=== PATIENT | female | born 1975 | race Caucasian/White ===

== ENCOUNTER 2017-08-03 12:03 | Emergency (ER) | payer BC ==
[2017-08-03 12:21] VITALS: TEMP 98.2
[2017-08-03] MEDS ORDERED: SODIUM CHLORIDE 0.9% 1,000 ML IV STA (13:13)
[2017-08-03] MEDS ORDERED: MECLIZINE 12.5 MG TAB PO STA (13:14)
[2017-08-03] MEDS ORDERED: DIAZEPAM 5 MG/ML 2 ML INJ IVP STA (13:14)
--- NOTE | 2017-08-03 13:26 | ED ---
Dizziness HPI - General Chief Complaint: Dizziness Stated Complaint: Dizziness/ sent from [facility] Time Seen by Provider: 08/03/17 13:04 Source: patient Mode of arrival: ambulatory Limitations: no limitations - History of Present Illness Initial Comments: Pt presents with "room spinning...it just won't stop spinning when I move". Dizziness x 4days, worse with movement. Pt states she has been ill for past 11 days, think she had flu but was never tested. +sinus congestion, +L ear pain, + nonproductive cough, +dec appetite, +darker urine than normal, +fevers, +Chills , +fatigue. Denies SAMANIEGO, CP, Palpitations, vomiting. Pt states no PMH, takes daily vitamin, no other meds. States her symptoms resolved except she has been experiencing dizziness and fatigue for the past 4 days. Denies focal weakness, numbness, vision changes, confusion, speech problems, H/o thyroid disease. MD Complaint: dizziness - Related Data Previous Rx's Medication Instructions Recorded Meclizine [Antivert] 25 mg PO TID PRN #10 tab 08/03/17 Allergies Allergy/AdvReac Type Severity Reaction Status Date / Time No Known Allergies Allergy Verified 08/03/17 13:05 Review of Systems ROS Statement: Those systems with pertinent positive or pertinent negative responses have been documented in the HPI. ROS Other: All systems not noted in ROS Statement are negative. Constitutional: Reports: fever (resolved), chills (resolved), weakness ( generalized) Eyes: Denies: eye pain, vision change ENT: Reports: ear pain (resolved), congestion (resolved). Denies: throat pain, hearing loss Respiratory: Reports: cough (mild, nonproductive). Denies: dyspnea, wheezes, hemoptysis, stridor Cardiovascular: Denies: chest pain, palpitations, dyspnea on exertion, edema, syncope Endocrine: Reports: fatigue Gastrointestinal: Reports: nausea. Denies: abdominal pain, vomiting, diarrhea, constipation Genitourinary: Reports: other (darker urine) Musculoskeletal: Reports: myalgia (resolved). Denies: back pain, joint swelling Skin: Denies: rash, change in color Neurological: Reports: vertigo. Denies: headache, weakness, numbness, paresthesias, confusion Past Medical History Past Medical History: No Reported History History of Any Multi-Drug Resistant Organisms: None Reported Past Surgical History: No Surgical Hx Reported Past Psychological History: No Psychological Hx Reported Smoking Status: Never smoker Past Alcohol Use History: None Reported Past Drug Use History: None Reported General Exam - General Exam Comments Initial Comments: Sitting up in bed. Appears mildly fatigued. Conversing normally calm, pleasant , smiling. Nontoxic appearing. Limitations: no limitations General appearance: alert, in no apparent distress Head exam: Present: atraumatic, normocephalic Eye exam: Present: normal appearance, PERRL, EOMI. Absent: scleral icterus, conjunctival injection, periorbital swelling, periorbital tenderness ENT exam: Present: normal exam, normal oropharynx, mucous membranes moist, TM's normal bilaterally, normal external ear exam (Ear canals and tympanic membranes appear clear bilaterally.) Neck exam: Present: normal inspection, full ROM. Absent: tenderness, meningismus, lymphadenopathy Respiratory exam: Present: normal lung sounds bilaterally. Absent: respiratory distress, wheezes, rales, rhonchi, stridor, accessory muscle use, decreased breath sounds, prolonged expiratory Cardiovascular Exam: Present: regular rate, normal rhythm. Absent: systolic murmur, diastolic murmur GI/Abdominal exam: Present: soft. Absent: distended, tenderness, guarding, rebound Extremities exam: Present: normal inspection. Absent: joint swelling Neurological exam: Present: alert, oriented X3, CN II-XII intact, other (No focal neuro deficits on exam. Movements coordinated. Speech clear. Muscle strength 5 out of 5 in all extremity. Sensation intact motionless. Pupils equal and reactive bilaterally. Eye movements intact bilaterally.). Absent: motor sensory deficit Psychiatric exam: Present: normal affect, normal mood Skin exam: Present: warm, dry, intact, normal color. Absent: rash, cyanosis, diaphoretic, erythema Course Vital Signs 08/03/17 12:18 Temperature 98.2 F Pulse Rate 69 Respiratory 18 Rate Blood Pressure 113/67 O2 Sat by Pulse 100 Oximetry Medical Decision Making - Medical Decision Making Patient experiencing URI, flulike symptoms starting 11 days ago, states they have since resolved, however she still feels fatigued, nauseated, dizzy for the past 4 days. Patient complaining of left ear pain however no abnormalities appreciated on examination of the left ear. Patient may be experiencing BPPV vs labrinthitis vs dehydration 2/2 dec oral intake. EKG from urgent care showed normal sinus rhythm, no ST or T wave changes, heart rate 59. Blood pressure from urgent care in the 90 systolic, orthostatic show no change in blood pressure, heart rate did change from 59-70 when going from lying to standing. Patient given 1 L fluids in ER. Patient influenza B-positive. No other significant lab abnormalities. Chest x- ray negative. The patient and updated with all results. Patient feels comfortable being discharged home. Supportive care and hydration for the flu discussed. We 'll give prescription Antivert for dizziness and nausea. She agrees to follow primary care physician one to 2 days for reevaluation. Return to ER if new or worsening symptoms. Patient and understand and agree, are very happy with her care. - Lab Data Result diagrams: 08/03/17 14:00 08/03/17 14:00 Lab Results 08/03/17 08/03/17 08/03/17 Range/Units 14:00 14:00 14:00 WBC 5.6 (3.8-10.6) k/uL RBC 5.27 (3.80-5.40) m/uL Hgb 11.8 (11.4-16.0) gm/dL Hct 38.5 (34.0-46.0) % MCV 73.0 L (80.0-100.0) fL MCH 22.3 L (25.0-35.0) pg MCHC 30.6 L (31.0-37.0) g/dL RDW 15.2 (11.5-15.5) % Plt Count 312 (150-450) k/uL Neutrophils % 61 % Lymphocytes % 33 % Monocytes % 4 % Eosinophils % 1 % Basophils % 0 % Neutrophils # 3.4 (1.3-7.7) k/uL Lymphocytes # 1.8 (1.0-4.8) k/uL Monocytes # 0.2 (0-1.0) k/uL Eosinophils # 0.1 (0-0.7) k/uL Basophils # 0.0 (0-0.2) k/uL Hypochromasia Marked Microcytosis Slight Sodium 141 (137-145) mmol/L Potassium 4.4 (3.5-5.1) mmol/L Chloride 106 (98-107) mmol/L Carbon Dioxide 24 (22-30) mmol/L Anion Gap 11 mmol/L BUN 11 (7-17) mg/dL Creatinine 0.60 (0.52-1.04) mg/dL Est GFR (MDRD) Af Amer >60 (>60 ml/min/1.73 sqM) Est GFR (MDRD) Non-Af >60 (>60 ml/min/1.73 sqM) Glucose 90 (74-99) mg/dL Calcium 9.5 (8.4-10.2) mg/dL Urine Color Urine Appearance (Clear) Urine pH (5.0-8.0) Ur Specific [place] (1.001-1.035) Urine Protein (Negative) Urine Glucose (UA) (Negative) Urine Ketones (Negative) Urine Blood (Negative) Urine Nitrite (Negative) Urine Bilirubin (Negative) Urine Urobilinogen (<2.0) mg/dL Ur Leukocyte Esterase (Negative) Urine RBC (0-5) /hpf Urine WBC (0-5) /hpf Ur Squamous Epith Cells (0-4) /hpf Urine Bacteria (None) /hpf Urine Mucus (None) /hpf Urine HCG, Qual Not Detected (Not Detectd) Influenza Type A RNA (Not Detectd) Influenza Type B (PCR) (Not Detectd) 08/03/17 08/03/17 Range/Units 14:00 14:00 WBC (3.8-10.6) k/uL RBC (3.80-5.40) m/uL Hgb (11.4-16.0) gm/dL Hct (34.0-46.0) % MCV (80.0-100.0) fL MCH (25.0-35.0) pg MCHC (31.0-37.0) g/dL RDW (11.5-15.5) % Plt Count (150-450) k/uL Neutrophils % % Lymphocytes % % Monocytes % % Eosinophils % % Basophils % % Neutrophils # (1.3-7.7) k/uL Lymphocytes # (1.0-4.8) k/uL Monocytes # (0-1.0) k/uL Eosinophils # (0-0.7) k/uL Basophils # (0-0.2) k/uL Hypochromasia Microcytosis Sodium (137-145) mmol/L Potassium (3.5-5.1) mmol/L Chloride (98-107) mmol/L Carbon Dioxide (22-30) mmol/L Anion Gap mmol/L BUN (7-17) mg/dL Creatinine (0.52-1.04) mg/dL Est GFR (MDRD) Af Amer (>60 ml/min/1.73 sqM) Est GFR (MDRD) Non-Af (>60 ml/min/1.73 sqM) Glucose (74-99) mg/dL Calcium (8.4-10.2) mg/dL Urine Color Yellow Urine Appearance Cloudy H (Clear) Urine pH 6.5 (5.0-8.0) Ur Specific [place] 1.019 (1.001-1.035) Urine Protein Trace H (Negative) Urine Glucose (UA) Negative (Negative) Urine Ketones Negative (Negative) Urine Blood Trace H (Negative) Urine Nitrite Negative (Negative) Urine Bilirubin Negative (Negative) Urine Urobilinogen <2.0 (<2.0) mg/dL Ur Leukocyte Esterase Moderate H (Negative) Urine RBC 4 (0-5) /hpf Urine WBC 3 (0-5) /hpf Ur Squamous Epith Cells 10 H (0-4) /hpf Urine Bacteria Rare H (None) /hpf Urine Mucus Moderate H (None) /hpf Urine HCG, Qual (Not Detectd) Influenza Type A RNA Not Detected (Not Detectd) Influenza Type B (PCR) Detected H (Not Detectd) Disposition Clinical Impression: Influenza B, Dizziness Disposition: HOME SELF-CARE Condition: Good Instructions: Influenza (ED), Dizziness (ED) Additional Instructions: Follow-up they're primary care physician 1-2 days. Return to ER if new or worsening symptoms. Prescriptions: Meclizine [Antivert] 25 mg PO TID PRN #10 tab PRN Reason: dizziness Referrals: Maura Lowry MD [Primary Care Provider] - 1-2 days
[2017-08-03 14:17] LABS: Basophils % (A) 0 %; Eosinophils # (A) 0.1 k/uL (0-0.7); Eosinophils % (A) 1 %; HCT 38.5 % (34.0-46.0); HGB 11.8 gm/dL (11.4-16.0); Hypochromasia Marked; Lymphocytes # (A) 1.8 k/uL (1.0-4.8); Lymphocytes % (A) 33 %; MCH 22.3 pg (25.0-35.0); MCHC 30.6 g/dL (31.0-37.0); Mean Platelet Volume 7.9; Microcytosis Slight; Monocytes # (A) 0.2 k/uL (0-1.0); Monocytes % (A) 4 %; Neutrophils # (A) 3.4 k/uL (1.3-7.7); Neutrophils % (A) 61 %; Platelet Count 312 k/uL (150-450); RBC 5.27 m/uL (3.80-5.40); RDW 15.2 % (11.5-15.5); WBC 5.6 k/uL (3.8-10.6)
[2017-08-03 14:38] LABS: Anion Gap 11 mmol/L; Blood Urea Nitrogen 11 mg/dL (7-17); Calcium 9.5 mg/dL (8.4-10.2); Carbon Dioxide 24 mmol/L (22-30); Chloride 106 mmol/L (98-107); Glucose 90 mg/dL (74-99); Potassium 4.4 mmol/L (3.5-5.1); Sodium 141 mmol/L (137-145)
--- NOTE | 2017-08-03 14:38 | XR ---
EXAMINATION TYPE: XR chest 2V DATE OF EXAM: 08/03/2017 COMPARISON: NONE TECHNIQUE: PA and lateral views submitted. HISTORY: Cough FINDINGS: The lungs are clear and there is no pneumothorax, pleural effusion, or focal pneumonia. Biapical pl eural thickening noted. IMPRESSION: 1. No acute process.
[2017-08-03 14:45] LABS: Appearance,Urine Cloudy (Clear); Bacteria,Urine Rare /hpf; Bilirubin,Urine Negative (Negative); Blood,Urine Trace (Negative); Color,Urine Yellow; Glucose,Urine (UA) Negative (Negative); Ketones,Urine Negative (Negative); Leukocyte Esterase,Urine Moderate (Negative); Mucus,Urine Moderate /hpf; Nitrite,Urine Negative (Negative); PH, Urine 6.5 (5.0-8.0); Protein,Urine Trace (Negative); RBC,Urine 4 /hpf (0-5); Specific Gravity,Urine 1.019 (1.001-1.035); Squamous Epithelial Cell,Urine 10 /hpf (0-4); Urobilinogen,Urine <2.0 mg/dL (<2.0); WBC,Urine 3 /hpf (0-5)
[2017-08-03 15:05] VITALS: BP 115/66; PULSE 53; RESP 16
== END 2017-08-03 15:05 | disposition home or self-care (01) ==
LOC: EC 12:03
DX: J10.1 Influenza due to other identified influenza virus with other respiratory manifestations (principal); R42 Dizziness and giddiness; H92.02 Otalgia, left ear
CPT/HCPCS: 36415; 80048; 84443; 85025; 81001; 81025; 87502; 71046; 99284; 96374; 96361; J3360

== ENCOUNTER → 2017-10-13 | Outpatient (CLI) | payer BC ==
--- NOTE | 2017-10-15 11:17 | MM ---
Reason for exam: screening (asymptomatic). Last mammogram was performed 3 years and 8 months ago. Physical Findings: A clinical breast exam by your physician is recommended on an annual basis and results should be correlated with mammographic findings. MG Screening Mammo w CAD Bilateral CC and MLO view(s) were taken. Prior study comparison: February 06, 2014, right breast MG work up mamm w CAD RT. January 18, 2014, bilateral MG screening mammo w CAD. The breast tissue is heterogeneously dense. This may lower the sensitivity of mammography. New central asymmetric density right MLO view may represent summation shadow but further evaluation is recommended. ASSESSMENT: Incomplete: need additional imaging evaluation, BI-RAD 0 RECOMMENDATION: Special view mammogram of the right breast. If lesion persists on supplemental views, image directed ultrasound is recommended. [facility] will attempt to contact patient to return for supplemental views and ultrasound if indicated.
== END ==
LOC: RADMAMWWP 09:36
PROVIDERS: ATTEND Internal Medicine
DX: Z12.31 Encounter for screening mammogram for malignant neoplasm of breast (principal)
CPT/HCPCS: 77067

== ENCOUNTER → 2017-10-21 | Outpatient (CLI) | payer BC ==
--- NOTE | 2017-10-22 08:35 | MM ---
Reason for exam: additional evaluation requested from abnormal screening. Last mammogram was performed less than 1 month ago. Physical Findings: Nurse did not find any significant physical abnormalities on exam. MG Work Up Mamm w CAD RT LM and spot compression MLO view(s) were taken of the right breast. Prior study comparison: October 13, 2017, bilateral MG screening mammo w CAD. February 06, 2014, right breast MG work up mamm w CAD RT. The breast tissue is heterogeneously dense. This may lower the sensitivity of mammography. No suspicious abnormality. The previously seen central asymmetry improves on spot veiw and appears as fibroglandular tissue. These results were verbally communicated with the patient and result sheet given to the patient on 10/21/17. ASSESSMENT: Incomplete: need additional imaging evaluation, BI-RAD 0 RECOMMENDATION: Ultrasound of the right breast. (palpable abnormality per nursing)
--- NOTE | 2017-10-22 08:40 | USB ---
Reason for exam: additional evaluation requested from abnormal screening. US Breast Workup Limited RT Right limited breast ultrasound including focal area of concern, retroareolar and axilla demonstrates a 0.4 x 0.2 x 0.6cm cystic, benign lesion too small to characterize at 9 o'clock, a 0.2 x 0.2 x 0.3cm lesion too small to characterize at 12 o'clock similar to 02/06/14 where it measured 0.3 x 0.2 x 0.4cm, a 0.6 x 0.2 x 0.4cm mixed lesion at the axilla tail no increase through transmission, maybe a complicated, cystic, dense in breast tissue and duct ectasia at the nipple. These results were verbally communicated with the patient and result sheet given to the patient on 10/21/17. ASSESSMENT: Suspicious, BI-RAD 4 RECOMMENDATION: Aspiration of the right breast. (attempt aspiration, if unsuccessful convert to biopsy) Ultrasound core biopsy of the right breast. Called Dr. Lowry with mammographic findings and Dr. Lowry will call patietn and schedule-per office. PRELIMINARY REPORT CALLED AND FAXED TO DR. LOWRY ON 10/22/17.
== END | disposition home or self-care (01) ==
LOC: RADMAMWWP 14:35
PROVIDERS: ATTEND Internal Medicine
DX: R92.8 Other abnormal and inconclusive findings on diagnostic imaging of breast (principal)
CPT/HCPCS: 77065

== ENCOUNTER → 2017-10-27 | Outpatient (CLI) | payer BC ==
[2017-10-27 10:47] LABS: Basophils % (A) 0 %; Eosinophils # (A) 0.1 k/uL (0-0.7); Eosinophils % (A) 1 %; HCT 40.4 % (34.0-46.0); Hypochromasia Slight; Lymphocytes % (A) 27 %; MCH 26.4 pg (25.0-35.0); MCHC 32.3 g/dL (31.0-37.0); MCV 81.6 fL (80.0-100.0); Mean Platelet Volume 7.6; Monocytes # (A) 0.3 k/uL (0-1.0); Monocytes % (A) 4 %; Neutrophils # (A) 4.7 k/uL (1.3-7.7); Neutrophils % (A) 66 %; Platelet Count 262 k/uL (150-450); RBC 4.95 m/uL (3.80-5.40); RDW 15.2 % (11.5-15.5); WBC 7.2 k/uL (3.8-10.6)
== END | disposition home or self-care (01) ==
LOC: LABPAT 10:12
PROVIDERS: ATTEND Obstetrics & Gynecology
DX: Z01.812 Encounter for preprocedural laboratory examination (principal); N93.8 Other specified abnormal uterine and vaginal bleeding
CPT/HCPCS: 36415; 85025

== ENCOUNTER 2017-11-23 09:00 | Day surgery (SDC) | payer BC ==
[2017-11-17 10:51] VITALS: BMI 27.1
[~2017-11-23 09:00] MED LIST: DEXAMETHASONE SOD PHOSPHATE 10 MG/ML 1 ML VIAL IV ONE; HYDROmorphone 0.5 MG/0.5 ML SYRINGE IVP PRN; LACTATED RINGERS 1,000 ML IV SCH; LIDOCAINE 1% 20 ML VIAL (10MG/ML) FOR IV START INTRADERMA PRN; MIDAZOLAM 2 MG/2 ML VIAL IV PRN; ONDANSETRON 4 MG/2 ML VIAL IVP ONE; ONDANSETRON 4 MG/2 ML VIAL IVP PRN; SCOPOLAMINE 1.5MG/72HR PATCH TRANSDERM ONE; fentaNYL (PF) 50 MCG/ML 2 ML AMP IV PRN
[2017-11-23] MEDS ORDERED: fentaNYL (PF) 50 MCG/ML 2 ML AMP ONE (11:12)
[2017-11-23] MEDS ORDERED: KETOROLAC 30 MG/ML 1 ML VIAL ONE (11:12)
[2017-11-23] MEDS ORDERED: PROPOFOL 10 MG/ML 20 ML VIAL IV ONE (11:12)
[2017-11-23] MEDS ORDERED: MIDAZOLAM 2 MG/2 ML VIAL ONE (11:12)
[2017-11-23] MEDS ORDERED: LIDOCAINE 1% INJ 10MG/ML (20 ML MDV) SQ ONE (11:23)
[2017-11-23] MEDS ORDERED: SILVER NITRATE APPLICATOR 1 EACH STICK..EA. TOPICAL ONE (11:49)
--- NOTE | 2017-11-23 11:53 | P.OP ---
Date of Procedure: 11/23/17 Preoperative Diagnosis: Menometrorrhagia Postoperative Diagnosis: Same Procedure(s) Performed: Diagnostic hysteroscopy and NovaSure endometrial ablation Anesthesia: MAC Surgeon: Susan Bustamante Estimated Blood Loss (ml): 10 IV fluids (ml): 750 Urine output (ml): 15 Pathology: none sent Condition: stable Disposition: PACU Operative Findings: Fluffy endometrium Description of Procedure: After the patient and her were met in the preoperative holding area and all questions were answered, she is seeing the operating room where anesthetic was administered without incident. She was in positioned, prepped and draped in the dorsal lithotomy position. Exam under anesthetic was undertaken. Bladder was drained for a scant amount of urine. Single-sided speculum was placed in the vagina and the cervix was grasped anteriorly with single-tooth tenaculum. Paracervical block with lidocaine was placed in the usual fashion. Uterus was sounded to 8 cm. The cervix was sequentially dilated with Hegar dilators to allow for passage of the diagnostic hysteroscope. Hysteroscope was introduced and a very fluffy endometrium was some blood and clot was noted. Hysteroscope was removed and the cervix was further dilated to allow for passage of the NovaSure device. The device was inserted with a cavity length of 4.5 cm and a width of 4.4 cm. Cavity assessment test was not passed several times despite adequate assessment of the cavity and a low suspicion for uterine perforation. The device as well as the NovaSure unit were eventually swapped out for anemia and the cavity assessment was then rapidly passed. Treatment cycle was 82 seconds. After cessation of the treatment cycle the device was removed and the hysteroscope was reintroduced. Complete desiccation of the endometrium was appreciated. Instruments were then removed from the uterus. There was some bleeding from the tenaculum sites which was controlled with silver nitrate. Restasis was then noted. All counts reported to me as correct by the operating room staff. The patient was awoken from anesthetic and transported recovery area in stable condition.
[2017-11-23 12:03] VITALS: TEMP 97
[2017-11-23 13:46] VITALS: BP 103/60; PULSE 73; RESP 20
== END 2017-11-23 13:52 | disposition home or self-care (01) ==
LOC: OR 09:00
PROVIDERS: ATTEND Obstetrics & Gynecology
DX: N92.1 Excessive and frequent menstruation with irregular cycle (principal); E78.5 Hyperlipidemia, unspecified; Z79.899 Other long term (current) drug therapy
CPT/HCPCS: 58563; 81025; J2250; J1100; J2405; J2001; J3010; J1885; J2704

== ENCOUNTER → 2022-09-11 | Outpatient (CLI) | payer BC ==
--- NOTE | 2022-09-12 08:12 | MM ---
Reason for Exam: Screening (asymptomatic). Last mammogram was performed 4 year(s) and 10 month(s) ago. Patient History: Menarche at age 9. First Full-Term at age 20. Risk Values: Melany 5 year model risk: 0.9%. NCI Lifetime model risk: 9.1%. Prior Study Comparison: 02/06/2014 Right Diagnostic Mammogram, [facility]. 10/13/2017 Bilateral Screening Mammogram, [facility]. 10/21/2017 Right Diagnostic Mammogram, [facility]. Tissue Density: The breast tissue is heterogeneously dense. This may lower the sensitivity of mammography. Findings: Analyzed By CAD. Stable oval circumscribed new 2.0 cm mass in the right breast upper outer quadrant corresponds to simple thin-walled cyst on outside ultrasound July 22, 2021 There is no suspicious group of microcalcifications or new suspicious or enlarging mass in either breast. Overall Assessment: Benign, BI-RAD 2 Management: Screening Mammogram of both breasts in 1 year. A clinical breast exam by your physician is recommended on an annual basis and results should be correlated with mammographic findings. Electronically signed and approved by: Pelon Medina M.D.
== END | disposition home or self-care (01) ==
LOC: RADMAMWWP 12:35
PROVIDERS: ATTEND Obstetrics & Gynecology
DX: Z12.31 Encounter for screening mammogram for malignant neoplasm of breast (principal); N63.11 Unspecified lump in the right breast, upper outer quadrant
CPT/HCPCS: 77067

== ENCOUNTER → 2023-12-24 | Outpatient (CLI) | payer BC ==
--- NOTE | 2023-12-28 08:02 | MM ---
Reason for Exam: Screening (asymptomatic). Last mammogram was performed 1 year(s) and 4 month(s) ago. Patient History: Menarche at age 9. First Full-Term at age 20. Risk Values: Melany 5 year model risk: 0.9%. NCI Lifetime model risk: 8.8%. Prior Study Comparison: 10/13/2017 Bilateral Screening Mammogram, [facility]. 10/21/2017 Right Diagnostic Mammogram, [facility]. 09/11/2022 Bilateral MG screening mammo w CAD, [facility]. Tissue Density: The breasts are extremely dense, which lowers the sensitivity of mammography. Findings: Analyzed By CAD. The pattern is symmetrical. No suspicious groups of microcalcifications, spiculated or lobular masses, architectural distortion or other secondary signs of malignancy are mammographically apparent. Overall Assessment: Negative, BI-RAD 1 Management: Screening Mammogram of both breasts in 1 year. A negative mammogram report should not preclude additional follow up of suspicious palpable abnormalities. Patient should continue monthly self breast exam. A clinical breast exam by your physician is recommended on an annual basis and results should be correlated with mammographic findings. Note on Melany scores and lifetime risk: 1. A Melany score greater than 3% is considered moderate risk. If this is the case, consider specialist referral to assess eligibility for a risk reducing agent. 2. If overall lifetime risk for the development of breast cancer is 20% or higher, the patient may qualify for future screening with alternating mammogram and breast MRI. Electronically signed and approved by: Fritz Barron D.O. Radiologis
== END | disposition home or self-care (01) ==
LOC: RADMAMWWP 08:39
PROVIDERS: ATTEND Obstetrics & Gynecology
DX: Z12.31 Encounter for screening mammogram for malignant neoplasm of breast (principal)
CPT/HCPCS: 77067

== ENCOUNTER → 2024-12-27 | Outpatient (CLI) | payer BC ==
--- NOTE | 2024-12-27 08:11 | MM ---
Reason for Exam: Screening (asymptomatic). Last screening mammogram was performed 12 month(s) ago. Patient History: Menarche at age 9. First Full-Term at age 20. Patient has history of breast feeding. Patient used Hormonal Contraceptives for 10 years. Risk Values: Melany 5 year model risk: 1.0%. NCI Lifetime model risk: 8.7%. Prior Study Comparison: 10/21/2017 Right Diagnostic Mammogram, [facility]. 09/11/2022 Bilateral MG screening mammo w CAD, [facility]. 12/24/2023 Bilateral MG screening mammo w CAD, [facility]. Tissue Density: The breasts are heterogeneously dense, which may obscure small masses. Findings: Analyzed By CAD. There is no suspicious group of microcalcifications or new suspicious mass in either breast. Overall Assessment: Negative, BI-RAD 1 Management: Screening Mammogram of both breasts in 1 year. . Patient should continue monthly self-breast exams. A clinical breast exam by your physician is recommended on an annual basis. This exam should not preclude additional follow-up of suspicious palpable abnormalities. Note on Melany scores and lifetime risk: 1. A Melany score greater than 3% is considered moderate risk. If this is the case, consider specialist referral to assess eligibility for a risk reducing agent. 2. If overall lifetime risk for the development of breast cancer is 20% or higher, the patient may qualify for future screening with alternating mammogram and breast MRI. [facility], , 12/27/2024 8:07 AM. Electronically signed and approved by: Scot Dwyer M.D. Radiologis
== END | disposition home or self-care (01) ==
LOC: RADMAMWWP 07:46
PROVIDERS: ATTEND Obstetrics & Gynecology
DX: Z12.31 Encounter for screening mammogram for malignant neoplasm of breast (principal); R92.333 Mammographic heterogeneous density, bilateral breasts; Z92.0 Personal history of contraception
CPT/HCPCS: 77067